=== PATIENT | female | born 1980 | race Caucasian/White ===

== ENCOUNTER → 2017-09-23 | Outpatient (CLI) | payer OTHER ==
[~2017-09-23] VITALS: Ht 152.4 cm; Wt 97.7 kg
[~2017-09-23] MED LIST: ADVIL200 MG PO; NEXIUM20 MG PO; WELLBUTRIN XL300 MG PO; ZOLOFT50 MG PO
[2017-09-23 14:18] VITALS: BP 140/91
== END | disposition home or self-care (01) ==
LOC: IVINF 13:00
DX: Z31.82 Encounter for Rh incompatibility status (principal); Z3A.00 Weeks of gestation of pregnancy not specified; Z67.91 Unspecified blood type, Rh negative; O20.0 Threatened abortion
CPT/HCPCS: 96372; J2790

== ENCOUNTER 2017-09-27 10:05 | Emergency (ER) | payer OTHER ==
[~2017-09-27] VITALS: Ht 175.3 cm; Wt 97.8 kg
[~2017-09-27 10:05] MED LIST changes: -ADVIL200 MG PO
[2017-09-27 11:25] LABS: HEMATOCRIT 40.6 % (36.0-46.0); MCH 29.5 PG (29.0-34.0); MCV 84.2 FL (83-99); MEAN PLAT.VOLUME 11.4 uM^3 (9.5-12.4); PLATELET COUNT 226 K/uL (156-360); RBC DIS.WIDTH-CV 14.8 % (11.8-14.6); RBC DIS.WIDTH-SD 45.2 % (39-53); RED BLOOD COUNT 4.82 M/uL (3.80-5.20); WHITE BLOOD COUNT 6.4 K/uL (4.1-10.2)
[2017-09-27 13:27] LABS: ADD MIUA? YES; BILIRUBIN NEGATIVE; BLOOD LARGE; GLUCOSE (STRIP) NEGATIVE; KETONES 5; LEUKOCYTES NEGATIVE; NITRITE NEGATIVE; PROTEIN (STRIP) 30; SPECIFIC GRAVITY 1.004 (1.000-1.030); UROBILINOGEN 0.2 MG/DL (0.2-1.0)
[2017-09-27 13:28] LABS: COLOR LT.RED ((YELLOW))
[2017-09-27] MEDS ORDERED: ADVIL200 MG PO (13:28)
[2017-09-27 14:13] LABS: BACTERIA RARE /HPF; CASTS NONE SEEN /LPF; CRYSTALS PRESENT; EPITHELIAL CELLS 1+ /HPF; MUCUS NONE SEEN /LPF; UCUL ADDED? NO; WHITE BLOOD CELLS 0-5 /HPF (0-5)
[2017-09-27 14:14] LABS: AMORPHOUS PHOSPHATE CRYSTALS 1+
[2017-09-27 14:21] VITALS: BP 157/94
== END 2017-09-27 14:23 | disposition home or self-care (01) ==
LOC: EME 10:05
DX: O20.0 Threatened abortion (principal); R42 Dizziness and giddiness; O09.511 Supervision of elderly primigravida, first trimester; Z3A.01 Less than 8 weeks gestation of pregnancy
CPT/HCPCS: 76801; 81003; 84702; 85027; 86900; 86901; 99281; 99284

== ENCOUNTER 2017-09-30 10:08 | Day surgery (SDC) | payer OTHER ==
[~2017-09-30] VITALS: Ht 175.3 cm; Wt 95.3 kg
[~2017-09-30 10:08] MED LIST changes: +ADVIL200 MG PO
[2017-09-30 10:51] VITALS: BP 144/92
[2017-09-30 11:03] LABS: BASOPHIL COUNT 0.1 K/uL (0-0.1); EOSINOPHIL (%) 0.8 % (0-5); EOSINOPHIL COUNT 0.1 K/uL (0-0.3); HEMATOCRIT 38.1 % (36.0-46.0); IMMATURE GRANULOCYTE (%) 0.5 % (0.0-0.7); INSTRUMENT ABS NEUTROPHIL CT 4.2 K/uL; LYMPHOCYTE COUNT 1.5 K/uL (1.0-2.8); MCH 29.8 PG (29.0-34.0); MCHC 35.2 G/DL (30.0-36.0); MCV 84.7 FL (83-99); MEAN PLAT.VOLUME 11.5 uM^3 (9.5-12.4); MONOCYTE COUNT 0.4 K/uL (0-0.8); NEUTROPHIL (%) 67.6 % (45-76); NEUTROPHIL COUNT 4.2 K/uL (1.8-6.4); PLATELET COUNT 236 K/uL (156-360); RBC DIS.WIDTH-CV 15.2 % (11.8-14.6); RBC DIS.WIDTH-SD 46.6 % (39-53); WHITE BLOOD COUNT 6.3 K/uL (4.1-10.2)
[2017-09-30 13:30] VITALS: BP 135/73
[2017-09-30 14:23] VITALS: BP 133/78
== END 2017-09-30 14:30 | disposition home or self-care (01) ==
LOC: SDC 10:08
PROVIDERS: Obstetrics & Gynecology
PROC: 10D17ZZ Extraction of Products of Conception, Retained, Via Natural or Artificial Opening (ICD-10-PCS; principal; 2017-09-30)
DX: O03.4 Incomplete spontaneous abortion without complication (principal); G43.909 Migraine, unspecified, not intractable, without status migrainosus; K21.9 Gastro-esophageal reflux disease without esophagitis; E78.00 Pure hypercholesterolemia, unspecified; E55.9 Vitamin D deficiency, unspecified; F41.9 Anxiety disorder, unspecified; F32.9 Major depressive disorder, single episode, unspecified; Z88.2 Allergy status to sulfonamides; Z88.5 Allergy status to narcotic agent; Z88.1 Allergy status to other antibiotic agents; Z91.013 Allergy to seafood; Z87.891 Personal history of nicotine dependence; Z82.49 Family history of ischemic heart disease and other diseases of the circulatory system; Z82.61 Family history of arthritis; Z81.1 Family history of alcohol abuse and dependence
CPT/HCPCS: 85025; 86850; 86870; 86900; 86901; 86905; 86920; 88305; J0330; J0690; J1100; J1885; J2250; J2405; J2765; J3010